=== PATIENT | male | born 1970 | race Asian ===

== ENCOUNTER 2016-09-20 17:31 | Emergency (ER) | payer OTHER ==
[~2016-09-20] VITALS: Ht 167.6 cm; Wt 63.5 kg
[2016-09-20 18:17] LABS: ABSOLUTE BASOPHIL COUNT 0 /CUMM (0.0-0.2); ABSOLUTE EOSINOPHIL COUNT 0.2 /CUMM (0.0-0.7); ABSOLUTE GRANULOCYTE CT 3.3 /CUMM (1.4-6.5); ABSOLUTE LYMPH COUNT 3.4 /CUMM (1.2-3.4); ABSOLUTE MONOCYTE COUNT 0.5 /CUMM (0.10-0.60); BASOPHIL % 0.7 % (0.0-2.0); EOSINOPHIL % 2.7 % (0-5); GRANULOCYTE % 44.4 % (42.2-75.2); HEMATOCRIT 38.7 % (42-52); MEAN CORPUSCULAR HGB 29.7 PG (27.0-31.0); MEAN CORPUSCULAR HGB CONC 33.4 G/DL (33.0-37.0); MEAN CORPUSCULAR VOLUME 88.9 FL (80.0-94.0); MEAN PLATELET VOLUME 8.3 FL (7.4-10.4); PLATELET COUNT 266 /CUMM (130-400); RBC DISTRIBUTION WIDTH 12.8 % (11.5-14.5); RED BLOOD CELL CT 4.35 /CUMM (4.70-6.10); WHITE BLOOD CELL COUNT 7.5 /CUMM (4.8-10.8)
--- NOTE | 2016-09-20 19:36 | ED CARDIAC/CP/PALPITATIONS ---
History of Present Illness General Chief Complaint: Chest Pain Stated Complaint: CHEST PAIN Source: patient, old records Exam Limitations: no limitations Vital Signs & Intake/Output Vital Signs & Intake/Output Vital Signs Date Time Temp Pulse Resp B/P Pulse O2 O2 Flow FiO2 Ox Delivery Rate 09/20 2222 70 20 124/79 98 Room Air 09/20 2034 97.8 71 18 122/91 99 Room Air 09/20 1745 98.0 71 16 137/90 99 Room Air Allergies Coded Allergies: MDX - SULFA (sulfonamide) (05/21/07) Uncoded Allergies: Allergy Other POLLEN/DUST Med Allergies SULFA Reconcile Medications Simvastatin (Simvastatin*) 20 MG TABLET 1 TAB PO QPM CHOL (Reported) Triage Note: PRESENTS TO ED COMPLAINING OF CHEST DISCOMFORT SINCE THIS EVENING. HE REPORTS IT STARTED AFTER LUNCH, DENIED NAUSEA OR VOMITING. NO DIAPHRESIS. Triage Nurses Notes Reviewed? yes HPI: Patient is a 46-year-old male presents complaining of midsternal chest pressure. Symptoms onset at approximately 1:30 PM today. Pain is a pressure sensation, is currently 1 out of 10, was 3-4 out of 10 earlier today. Patient has not taken any medication today for his symptoms. No exacerbating or alleviating factors. Pain is nonradiating. Patient denies diaphoresis, jaw pain, extremity pain, dyspnea, nausea, vomiting, lower extremity pain, lower extremity swelling. (GARY HEREDIA) Past History Travel History Traveled to [place] past 21 day No Medical History Any Pertinent Medical History? see below for history Renal: IgA nephropathy Surgical History Surgical History: non-contributory Psychosocial History What is your primary language Ecuadorean Tobacco Use: Never used Family History Hx Contributory? No (GARY HEREDIA) Review of Systems Review of Systems Constitutional: Denies: chills, fever. EENTM: Reports: no symptoms. Respiratory: Denies: cough, short of breath. Cardiovascular: Reports: see HPI. GI: Denies: abdominal pain, nausea, vomiting. Musculoskeletal: Denies: back pain, neck pain. Skin: Reports: no symptoms. Neurological/Psychological: Denies: headache, numbness. Hematologic/Endocrine: Denies: bruising, bleeding. Immunologic/Allergic: Denies: splenectomy. (GARY HEREDIA) Physical Exam Physical Exam General Appearance: well developed/nourished, alert, awake Head: atraumatic, normal appearance Eyes: Bilateral: normal appearance, PERRL, EOMI. Ears, Nose, Throat: normal pharynx, normal ENT inspection, hearing grossly normal Neck: normal inspection, supple, full range of motion Respiratory: normal breath sounds, chest non-tender, no respiratory distress, lungs clear Cardiovascular: regular rate/rhythm Peripheral Pulses: 2+ dorsalis pedis (R), 2+ dorsalis pedis (L) Gastrointestinal: soft, non-tender Back: normal inspection, normal range of motion Extremities: normal inspection, normal capillary refill, normal range of motion, no edema, no calf tenderness Neurologic/Psych: no motor/sensory deficits, awake, alert, oriented x 3, normal gait, normal mood/affect Skin: intact, normal color, warm/dry Core Measures ACS in differential dx? Yes ASA ordered for poss ACS? Yes-ordered Severe Sepsis Present: No Septic Shock Present: No All Positive = PERC Ruled Out: Positive: age < 50 years, heart rate < 100 bpm, O2 sat > 94%, no hemoptysis, no hormone use, no prior DVT or PE, no unilateral leg swellin, no surgery/trauma w/ in 4w. Wells Criteria Score: 0 (MARVEL VIRGEN,GARY) Progress Differential Diagnosis: AMI, aortic dissection, atrial fibrillation, CHF/pulm edema, costochondritis, hyperventilation, musculoskeletal pain, myocarditis, pericarditis, pneumonia, pneumothorax, pulmonary embolism, unstable angina, V- fib/V-Tach Plan of Care: Orders Procedure Date/time Status TROPONIN LEVEL 09/20 2129 Complete EKG 09/20 2129 Active Telemetry/Appeals Manager 09/20 1949 Active TROPONIN LEVEL 09/20 1754 Complete COMPREHENSIVE METABOLIC PANEL 09/20 1754 Complete CBC WITHOUT DIFFERENTIAL 09/20 175 Complete EKG 09/20 1732 Active Laboratory Tests 09/20/16 213: Troponin I < 0.01 09/20/16 180: Anion Gap 12, Estimated GFR > 60, BUN/Creatinine Ratio 16.4, Glucose 94, Calcium 9.8, Total Bilirubin 0.7, AST 23, ALT 48, Alkaline Phosphatase 92, Troponin I < 0.01, Total Protein 8.0, Albumin 4.6, Globulin 3.4, Albumin/Globulin Ratio 1.4, CBC w Diff NO MAN DIFF REQ, RBC 4.35 L, MCV 88.9, MCH 29.7, RDW 12.8, MPV 8.3, Gran % 44.4, Lymphocytes % 45.5, Monocytes % 6.7, Eosinophils % 2.7, Basophils % 0.7, Absolute Granulocytes 3.3, Absolute Lymphocytes 3.4, Absolute Monocytes 0.5 , Absolute Eosinophils 0.2, Absolute Basophils 0, PUBS MCHC 33.4 2114: Discussed with Dr. Elam: obtain 2nd ekg and troponin, if negative can have follow up outpatient. 2209: Results discussed with patient. Patient resting comfortably. Discussed importance of close outpatient follow-up and signs and symptoms to monitor for to return to the ER. (GARY HEREDIA) Diagnostic Imaging: Viewed by Me: Radiology Read. Discussed w/RAD: Radiology Read. Radiology Impression: PATIENT: INES GARCIAS PRESENT AGE: 46 PATIENT ACCOUNT NO: [id number] : 70 LOCATION: [facility] ORDERING PHYSICIAN: GARY VIRGEN SERVICE DATE: 09/20/16 EXAM TYPE: RAD - XRY-PORTABLE CHEST XRAY EXAMINATION: XR PORTABLE CHEST CLINICAL INFORMATION: Chest pain COMPARISON: None TECHNIQUE: Portable AP portable view of the chest was obtained. 7:57 PM FINDINGS: No significant abnormality is noted involving the heart, lungs, mediastinum, bony thorax or soft tissues. IMPRESSION : No acute change of the chest. DICTATED BY: DORINDA DARNELL MD DATE/TIME DICTATED: 09/20/162019 VACUUM FORM OPERATOR:BROOKS DATE/TIME TRANSCRIBED:09/20/162019 CONFIDENTIAL, DO NOT COPY WITHOUT APPROPRIATE AUTHORIZATION. <Electronically signed in Other Vendor System> SIGNED BY: DORINDA DARNELL MD 09/20/162024 Initial ED EKG: normal sinus rhythm 68 bpm normal axis, normal intervals, nonspecific T-wave abnormalities, no acute ST elevation or depression Prior EKG: changed (nonspecific t wave changes) Repeat EKG: unchanged Rhythm Strip: normal sinus rhythm (GARY HEREDIA) Departure Departure Time of Disposition: 2209 Disposition: HOME OR SELF CARE Condition: Stable Clinical Impression Primary Impression: Chest pain Qualifiers: Chest pain type: unspecified Qualified Code: R07.9 - Chest pain, unspecified Referrals: ARIELLE BROOKS,DHIRAJ HO DO (PCP/Family) Additional Instructions: Follow-up with Dr. Elam (secretary specialist) or with your primary doctor this week for further evaluation. Call in the morning for appointment. Return to the emergency department if chest pain worsens, difficulty breathing, weakness, or worsening of symptoms. Departure Forms: Customer Survey General Discharge Information (GARY HEREDIA) PA/MANAGER AGENCY Co-Sign Statement Statement: ED Attending supervision documentation- [] I saw and evaluated the patient. I have also reviewed all the pertinent lab results and diagnostic results. I agree with the findings and the plan of care as documented in the PA's/MANAGER AGENCY's documentation. [X] I have reviewed the ED Record and agree with the PA's/MANAGER AGENCY's documentation. [] Additions or exceptions (if any) to the PAs/MANAGER AGENCY's note and plan are summarized below: [] (CURTIS BROOKS,YONG) Critical Care Note Critical Care Note Critical Care Time: non-applicable (GARY HEREDIA)
--- NOTE | 2016-09-20 20:25 | RADIOLOGY REPORT ---
EXAMINATION: XR PORTABLE CHEST CLINICAL INFORMATION: Chest pain COMPARISON: None TECHNIQUE: Portable AP portable view of the chest was obtained. 7:57 PM FINDINGS: No significant abnormality is noted involving the heart, lungs, mediastinum, bony thorax or soft tissues. IMPRESSION: No acute change of the chest.
[2016-09-20] MEDS ORDERED: SIMVASTATIN20 M2 PO (21:02)
[2016-09-20 22:22] VITALS: BP 124/79
== END 2016-09-20 22:23 ==
LOC: ERH 17:31
PROVIDERS: Emergency Medicine
DX: R07.9 Chest pain, unspecified (principal)
CPT/HCPCS: 93005; 93010